=== PATIENT | male | born 2000 | race Caucasian/White ===

== ENCOUNTER 2024-10-09 14:51 | Emergency (ER) | payer MEDICAID, SELFPAY ==
[2024-10-09 15:07] VITALS: BP 114/78; PULSE 88; RESP 18; TEMP 36.9; O2SAT 100; BMI 24.7
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
--- NOTE | 2024-10-09 16:09 | PRELIM_ITS ---
CT scan of the cervical spine without intravenous contrast (axial sections with sagittal and coronal reformats) October 09, 2024 1513 hours Clinical History: Trauma Comparison: No prior study is availa ble for comparison. Findings:There is no fracture or traumatic subluxation. The prevertebral soft tis sues are unremarkable.Impression:No evidence of fracture or traumatic subluxation. Report Electronica lly Signed By: Gracy Robins 10/09/2024 4:08:44 PM [EST]
--- NOTE | 2024-10-09 16:09 | PRELIM_ITS ---
CT scan of the lumbar spine without intravenous contrast (axial sections with sagittal and coronal re formats) October 09, 2024 1523 hours Clinical History: trauma Comparison: No prior study is availabl e for comparison. Findings:There is no fracture or subluxation. The vertebral body height and interve rtebral disc spaces are normal. The soft tissues are unremarkable.Impression:No evidence of fracture, subluxation or significant soft tissue injury. Report Electronically Signed By: Gracy Robins 10/09/20 4:08:50 PM [EST]
--- NOTE | 2024-10-09 16:09 | PRELIM_ITS ---
CT scan of the head without intravenous contrast (axial sections with sagittal and coronal reformats) October 09, 2024 1513 hours Clinical History: Trauma .Comparison: No prior study is available for c omparison. Findings:No evidence of intracranial hemorrhage, mass effect or midline shift. The ventric les and CSF spaces are unremarkable. The calvarium is intact. The mastoid air cells and the visualize d paranasal sinuses are clear.Impression:No evidence of intracranial hemorrhage, midline shift or patsy varial fracture. Report Electronically Signed By: Gracy Robins 10/09/2024 4:08:46 PM [EST]
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
== END 2024-10-09 17:55 | disposition home or self-care (01) ==
PROVIDERS: Emergency Provider Emergency Medicine
DX: S13.4XXA Sprain of ligaments of cervical spine, initial encounter (principal); V89.2XXA Person injured in unspecified motor-vehicle accident, traffic, initial encounter; M25.571 Pain in right ankle and joints of right foot; M25.511 Pain in right shoulder
CPT/HCPCS: 70450; 72125; 72131; 73030; 73610; 73630; 99284